=== PATIENT | female | born 2005 | race Caucasian/White ===

== ENCOUNTER 2023-11-22 11:12 | Emergency (ER) | payer OTHER ==
[2023-11-22 11:22] VITALS: RESP 16; TEMP 98.6
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
[2023-11-22] MEDS: KETOROLAC 15 MG/ML 1 ML VIAL IVP STA (11:39)
[2023-11-22] MEDS: MORPHINE SULFATE 2 MG/ML SYRINGE IVP STA (11:40)
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
[2023-11-22] MEDS: ACET/COD 300 MG/30 MG STARTER PACK 6 TAB BTL PO STA (13:21)
[2023-11-22 13:32] VITALS: BP 127/74; PULSE 84
== END 2023-11-22 13:29 | disposition home or self-care (01) ==
LOC: EC 11:12
CPT/HCPCS: 12002; 70450; 71046; 72125; 72170; 96374; 96375; 99284